=== PATIENT | female | born 1955 | race Caucasian/White ===

== ENCOUNTER 2022-07-01 16:51 | Emergency (ER) | payer BC, OTHER ==
[~2022-07-01] VITALS: Ht 170.2 cm; Wt 59.0 kg
[2022-07-01 17:26] VITALS: BP_SYST 150
--- NOTE | 2022-07-01 17:31 | NUR ---
Patient triaged and placed in waiting room. VSS and patient appears in no acute distress at this time. Accompanied by , awaiting available bed, and MD notified of need for MSE.
[2022-07-01 19:13] LABS: HEMATOCRIT 37.9 % (36-48); HEMOGLOBIN 12.4 g/dL (12.0-16.0); MEAN CORPUSCULAR HEMOGLOBIN 31 pg (27-31); MEAN CORPUSCULAR HGB CONC 33 % (32-36); MEAN CORPUSCULAR VOLUME 94 fL (79.0-98.0); PLATELET COUNT (AUTO) 217 K/uL (130-430); RED BLOOD CELL COUNT(AUTO) 4.04 MIL/uL (4.2-6.2); RED CELL DISTRIBUTION WIDTH 14.2 % (9.0-15.0)
[2022-07-01 19:16] LABS: ALBUMIN 3.8 g/dL (3.4-4.8); CREATININE 1.49 mg/dL (0.55-1.30); TOTAL BILIRUBIN 0.6 mg/dL (0.0-1.0)
[2022-07-01 19:24] LABS: BILIRUBIN,URINE NEGATIVE (NEGATIVE); BLOOD, URINE 3+ (NEGATIVE); CLARITY/URINE HAZY (CLEAR); COLOR,URINE YELLOW (YELLOW); GLUCOSE,URINE NEGATIVE (NEGATIVE); KETONES,URINE NEGATIVE (NEGATIVE); LEUKOCYTE ESTERASE ,URINE 2+ (NEGATIVE); NITRITE, URINE POSITIVE (NEGATIVE); PROTEIN URINE 2+ (NEGATIVE); UROBILINOGEN,URINE 0.2 (0.2-1.0)
[2022-07-01 19:24] LABS: PHOSPHORUS 2.7 mg/dL (2.7-4.5); THYROID STIMULATING HORMONE 0.26 uIu/mL (0.36-3.74)
[2022-07-01 19:26] LABS: BACTERIA,URINE MODERATE /HPF (None Seen); RBC,URINE 0-3 /HPF (0-3); WBC,URINE 20-50 /HPF (0-3)
[2022-07-01 19:27] LABS: MUCUS,URINE None Seen /LPF (None Seen)
[2022-07-01 19:31] LABS: WHITE BLOOD COUNT (AUTO) 44.3 K/uL (4.8-10.8)
[2022-07-01 19:51] LABS: ATYPICAL LYMPHOCYTES % 4 % (0-0); BAND % (MANUAL) 1 % (0-6); BASOPHILS % (MANUAL) 0 % (0-2); EOSINOPHILS % (MANUAL) 0 % (0-7); LYMPHOCYTES % (MANUAL) 70 % (20-46); MONOCYTES % (MANUAL) 1 % (0-11)
[2022-07-01] MEDS ORDERED: NACL 0.9% 2,000 ML IV ONE (20:15)
[2022-07-01] MEDS ORDERED: cefTRIAXone 1 GM in D5W 50 ML IV ONE (20:15)
[2022-07-01] MEDS ORDERED: CEPH-548 PO (20:39)
[2022-07-01] MEDS ORDERED: cephALEXin 500 MG CAPSULE PO ONE (20:45)
--- NOTE | 2022-07-01 20:55 | NUR ---
Patient to ER bed 4 to gown for evaluation. Side rails up. Report given to FATOU LONGO(REG).
[2022-07-01 21:10] VITALS: BP_SYST 134
--- NOTE | 2022-07-01 21:14 | NUR ---
Patient given written and verbal discharge instructions and verbalizes understanding. ER MD discussed with patient the results and treatment provided. Patient in stable condition. ID arm band removed. IV catheter removed intact and dressing applied, no active bleeding. Rx of meds given. Patient educated on pain management and to follow up with PMD. Pain Scale . Opportunity for questions provided and answered. Medication side effect fact sheet provided.
--- NOTE | 2022-07-03 17:35 | NUR ---
LAB RESULTS: BLOOD CULTURE GRAM NEGATIVE RODS PT CALLED AND LAB RESULTS EXPLAINED BY ER DR. ESPINAL. PT TO RETURN TO ER [facility]. PT VERBALIZED UNDERSTANDING.
== END 2022-07-01 21:10 | disposition home or self-care (01) ==
LOC: SED 16:51
DX: N39.0 Urinary tract infection, site not specified (principal); R32 Unspecified urinary incontinence; I10 Essential (primary) hypertension; Z85.6 Personal history of leukemia; Z79.899 Other long term (current) drug therapy
CPT/HCPCS: 36415; 80053; 81000; 83605; 83615; 83735; 84100; 84443; 85007; 85027; 87040; 87086; 99283

== ENCOUNTER 2022-07-03 18:10 | Inpatient (IN) | payer OTHER, BC ==
[~2022-07-03] VITALS: Ht 167.6 cm; Wt 59.0 kg
[~2022-07-03 18:10] MED LIST: CEPH-548 PO
[2022-07-03 18:34] VITALS: BP_SYST 137
--- NOTE | 2022-07-03 18:37 | NUR ---
Patient triaged and placed in waiting room. VSS and patient appears in no acute distress at this time. Accompanied by , awaiting available bed, and MD notified of need for MSE.
--- NOTE | 2022-07-03 18:43 | NUR ---
PT HAS RETURNED TO ER AFTER BEING INSTRUCTED TO. PT HAD POSITIVE BLOOD CULTURE RESULTS: NEGATIVE RODS. PT IS AMBULATORY, AAOX4, VSS
--- NOTE | 2022-07-03 19:45 | NUR ---
FIRST CONTACT WITH PT. ASSESSMENT COMPLETED. AWAITING ADDITIONAL EVAL AND ORDERS.
[2022-07-03 20:04] LABS: HEMOGLOBIN 12.1 g/dL (12.0-16.0); MEAN CORPUSCULAR HEMOGLOBIN 31 pg (27-31); MEAN CORPUSCULAR HGB CONC 33 % (32-36); MEAN CORPUSCULAR VOLUME 93 fL (79.0-98.0); PLATELET COUNT (AUTO) 219 K/uL (130-430); RED BLOOD CELL COUNT(AUTO) 3.97 MIL/uL (4.2-6.2); RED CELL DISTRIBUTION WIDTH 14.2 % (9.0-15.0)
[2022-07-03 20:15] LABS: WHITE BLOOD COUNT (AUTO) 43.4 K/uL (4.8-10.8)
[2022-07-03] MEDS ORDERED: cefTRIAXone 1 GM in D5W 50 ML IV ONE (20:15)
[2022-07-03] MEDS ORDERED: cefTRIAXone 1 GM VIAL ONE (20:18)
[2022-07-03 20:19] LABS: ALBUMIN 3.7 g/dL (3.4-4.8); CALCIUM 9.2 mg/dL (8.4-11.0); CREATININE 1.73 mg/dL (0.55-1.30); TOTAL BILIRUBIN 0.3 mg/dL (0.0-1.0)
[2022-07-03 20:26] LABS: BAND % (MANUAL) 4 % (0-6); BASOPHILS % (MANUAL) 0 % (0-2); EOSINOPHILS % (MANUAL) 0 % (0-7); MONOCYTES % (MANUAL) 3 % (0-11)
[2022-07-03 20:27] LABS: LYMPHOCYTES % (MANUAL) 82 % (20-46)
--- NOTE | 2022-07-03 21:01 | NUR ---
Admit bed requested Patient will be admitted to care of . Admitted to MED SURG unit. Diagnosis UTI Inpatient (Yes or No) Y Observation (Yes or No) N Orientation concerns or request close to nursing station (Yes or No) N Covid Status N/A On vent or bipap N Isolation requirements Needs a sitter N From Home (Yes or if No enter name of facility) Y Requires Dialysis (Yes or No) Med Rec Completed (Yes of No) Y
--- NOTE | 2022-07-03 21:44 | NUR ---
REPORT CALLED TO AMANDA MILLARD RN AND TRANSPORTED PT TO ROOM 118A
--- NOTE | 2022-07-03 21:45 | NUR ---
Patient will be admitted to care of DR REDD. Admitted to MED SURGE unit. Will go to room 118A. Belongings list completed. Complete and up to date summary report printed. SBAR report to be given at bedside with opportunity for questions.
[2022-07-03 22:10] LABS: BILIRUBIN,URINE NEGATIVE (NEGATIVE); BLOOD, URINE 1+ (NEGATIVE); CLARITY/URINE CLEAR (CLEAR); COLOR,URINE YELLOW (YELLOW); GLUCOSE,URINE NEGATIVE (NEGATIVE); KETONES,URINE NEGATIVE (NEGATIVE); LEUKOCYTE ESTERASE ,URINE TRACE (NEGATIVE); NITRITE, URINE NEGATIVE (NEGATIVE); PROTEIN URINE NEGATIVE (NEGATIVE); UROBILINOGEN,URINE 0.2 (0.2-1.0)
[2022-07-03 22:28] LABS: BACTERIA,URINE RARE /HPF (None Seen); MUCUS,URINE None Seen /LPF (None Seen)
[2022-07-03 22:39] VITALS: BP_SYST 142
--- NOTE | 2022-07-04 01:44 | NUR ---
Consultation Paged Reason for Consultation: UTI Was consult called: Y Person who was notified: Sima Consulting Physician: Dr. Presotn Ordering Physician: True Hall
[2022-07-04 07:54] VITALS: BP_SYST 142
[2022-07-04] MEDS ORDERED: NALOXONE HCL 0.4 MG/ML AMP (NARCAN) IVP PRN ×2 (10:00)
[2022-07-04] MEDS ORDERED: HYDROcodone/ACETAMIN 5-325 MG TAB (NORCO/ VICODIN) PO PRN (10:00)
[2022-07-04] MEDS ORDERED: ACETAMINOPHEN 325 MG TABLET PO PRN (10:00)
[2022-07-04] MEDS ORDERED: ONDANSETRON HCL 4 MG/2 ML VIAL IVP PRN (10:00)
[2022-07-04] MEDS ORDERED: LORazepam 2 MG/ML VIAL IVP PRN (10:00)
[2022-07-04] MEDS ORDERED: HYDROcodone/ACETAMIN 10-325 MG TAB PO PRN (10:00)
--- NOTE | 2022-07-04 10:09 | NUR ---
CONSULTATION PAGED REASON FOR CONSULTATION:LIZA WAS CONSULT CALLED?Y PERSON WHO WAS NOTIFIED:MANUEL CONSULTING PHYSICIAN:LEO REESE [employer]SEM[employer] SPECIALTY:NEPHROLOGY MEDICAL ASSEMBLY PHONE NUMBER:[phone] REQUESTING PHYSICIAN:MCKINLEY ESTRELLA
[2022-07-04 10:59] LABS: BASOPHILS # (AUTO) 0.1 K/uL (0.0-0.2); BASOPHILS % (AUTO) 0.1 % (0.0-2.0); HEMATOCRIT 36.6 % (36-48); HEMOGLOBIN 11.8 g/dL (12.0-16.0); LYMPHOCYTES # (AUTO) 30.9 K/uL (1.0-5.5); MEAN CORPUSCULAR HEMOGLOBIN 30 pg (27-31); MEAN CORPUSCULAR HGB CONC 32 % (32-36); MEAN CORPUSCULAR VOLUME 93 fL (79.0-98.0); MONOCYTES % (AUTO) 2.7 % (1.7-9.3); NEUTROPHILS # (AUTO) 4.3 K/uL (1.8-7.7); PLATELET COUNT (AUTO) 206 K/uL (130-430); RED BLOOD CELL COUNT(AUTO) 3.92 MIL/uL (4.2-6.2); RED CELL DISTRIBUTION WIDTH 13.6 % (9.0-15.0)
[2022-07-04 11:23] LABS: ALBUMIN 3.4 g/dL (3.4-4.8); C-REACTIVE PROTEIN QUANT 5.7 mg/dL (0-0.5); CALCIUM 9.1 mg/dL (8.4-11.0); CREATININE 1.54 mg/dL (0.55-1.30); PHOSPHORUS 3.2 mg/dL (2.7-4.5); TOTAL BILIRUBIN 0.3 mg/dL (0.0-1.0)
[2022-07-04 11:24] LABS: WHITE BLOOD COUNT (AUTO) 36.3 K/uL (4.8-10.8)
[2022-07-04 11:25] LABS: LYMPHOCYTES % (AUTO) 85.2 % (20.5-51.5)
[2022-07-04 11:27] LABS: ERYTHROCYTE SEDIMENTATION RATE 37 MM/HR (0-20)
[2022-07-04] MEDS: D5/0.45 NS 1,000 ML IV SCH ×2 (12:27→20:00)
[2022-07-04] MEDS: PIPERACILLIN/TAZO 4.5GM/DEX-IS 100 ML IV SCH ×2 (13:18→22:20)
--- NOTE | 2022-07-04 15:36 | NUR ---
New PIV started to the RFA 20G x1 attempt. Pt tolerated well. The LAC removed d/t placement and not flowing with IVF.
[2022-07-04] MEDS: ACETAMINOPHEN 325 MG TABLET PO PRN (16:26)
[2022-07-04 16:40] VITALS: BP_SYST 107
[2022-07-04 20:00] VITALS: BP_SYST 110
[2022-07-04] MEDS ORDERED: cefTRIAXone 1 GM IVPB PREMIX 50 ML IV SCH (21:00)
--- NOTE | 2022-07-05 00:40 | NUR ---
Received SBAR report Received report from DONTA Herring. Patient is resting in bed, eyes closed, lights are out. No distress. IVF infusing as ordered. Call light w/in reach
[2022-07-05] MEDS: D5/0.45 NS 1,000 ML IV SCH ×2 (01:54→13:28)
--- NOTE | 2022-07-05 01:54 | NUR ---
IVF late entry IVF empty, hung new bag, infusing well.
[2022-07-05 04:40] LABS: HEMATOCRIT 32.8 % (36-48); HEMOGLOBIN 10.6 g/dL (12.0-16.0); MEAN CORPUSCULAR HEMOGLOBIN 30 pg (27-31); MEAN CORPUSCULAR HGB CONC 32 % (32-36); MEAN CORPUSCULAR VOLUME 94 fL (79.0-98.0); PLATELET COUNT (AUTO) 199 K/uL (130-430); RED BLOOD CELL COUNT(AUTO) 3.49 MIL/uL (4.2-6.2); RED CELL DISTRIBUTION WIDTH 14.1 % (9.0-15.0)
[2022-07-05 04:55] LABS: CALCIUM 8.3 mg/dL (8.4-11.0); CREATININE 1.62 mg/dL (0.55-1.30); PHOSPHORUS 3.8 mg/dL (2.7-4.5)
[2022-07-05 05:38] LABS: WHITE BLOOD COUNT (AUTO) 34.3 K/uL (4.8-10.8)
[2022-07-05 06:09] LABS: BAND % (MANUAL) 2 % (0-6); BASOPHILS % (MANUAL) 0 % (0-2); EOSINOPHILS % (MANUAL) 0 % (0-7); LYMPHOCYTES % (MANUAL) 82 % (20-46); MONOCYTES % (MANUAL) 5 % (0-11)
[2022-07-05] MEDS: PIPERACILLIN/TAZO 4.5GM/DEX-IS 100 ML IV SCH ×3 (06:16→22:44)
[2022-07-05 06:20] VITALS: BP_SYST 123
--- NOTE | 2022-07-05 06:30 | NUR ---
Antibiotic, patient care Administered scheduled antibiotic, reviewed side effects and she verbalized understanding. Provided with new gown, bed sheets and socks. She gave self bed bath with CHG/bath wipes. provided new pitcher of water
[2022-07-05 08:02] VITALS: BP_SYST 126
[2022-07-05 11:19] VITALS: BP_SYST 117
[2022-07-05] MEDS: ACETAMINOPHEN 325 MG TABLET PO PRN (12:05)
[2022-07-05 15:30] VITALS: BP_SYST 126
[2022-07-05 19:36] LABS: BILIRUBIN,URINE NEGATIVE (NEGATIVE); CLARITY/URINE CLEAR (CLEAR); COLOR,URINE YELLOW (YELLOW); GLUCOSE,URINE NEGATIVE (NEGATIVE); KETONES,URINE NEGATIVE (NEGATIVE); LEUKOCYTE ESTERASE ,URINE NEGATIVE (NEGATIVE); NITRITE, URINE NEGATIVE (NEGATIVE); PROTEIN URINE NEGATIVE (NEGATIVE); UROBILINOGEN,URINE 0.2 (0.2-1.0)
[2022-07-05 19:40] LABS: BLOOD, URINE TRACE (NEGATIVE)
[2022-07-05 19:52] LABS: BACTERIA,URINE RARE /HPF (None Seen); RBC,URINE 0-3 /HPF (0-3); WBC,URINE 0-3 /HPF (0-3)
[2022-07-05 20:00] VITALS: BP_SYST 142
[2022-07-06] MEDS: D5/0.45 NS 1,000 ML IV SCH (01:35)
[2022-07-06 01:37] VITALS: BP_SYST 133
[2022-07-06 05:03] LABS: BASOPHILS % (AUTO) 0.1 % (0.0-2.0); EOSINOPHILS # (AUTO) 0.1 K/uL (0.0-0.4); EOSINOPHILS % (AUTO) 0.3 % (0.0-4.0); HEMATOCRIT 34.5 % (36-48); HEMOGLOBIN 11.1 g/dL (12.0-16.0); LYMPHOCYTES # (AUTO) 24.2 K/uL (1.0-5.5); LYMPHOCYTES % (AUTO) 83.5 % (20.5-51.5); MEAN CORPUSCULAR HEMOGLOBIN 30 pg (27-31); MEAN CORPUSCULAR HGB CONC 32 % (32-36); MEAN CORPUSCULAR VOLUME 94 fL (79.0-98.0); MONOCYTES # (AUTO) 0.6 K/uL (0.0-1.0); MONOCYTES % (AUTO) 2.2 % (1.7-9.3); NEUTROPHILS % (AUTO) 13.9 % (40.0-70.0); PLATELET COUNT (AUTO) 201 K/uL (130-430); RED BLOOD CELL COUNT(AUTO) 3.68 MIL/uL (4.2-6.2); RED CELL DISTRIBUTION WIDTH 13.9 % (9.0-15.0)
[2022-07-06 05:25] LABS: C-REACTIVE PROTEIN QUANT 1.8 mg/dL (0-0.5); CALCIUM 8.4 mg/dL (8.4-11.0); CREATININE 1.47 mg/dL (0.55-1.30); PHOSPHORUS 3.7 mg/dL (2.7-4.5); TOTAL BILIRUBIN 0.3 mg/dL (0.0-1.0)
[2022-07-06] MEDS: PIPERACILLIN/TAZO 4.5GM/DEX-IS 100 ML IV SCH (06:05)
[2022-07-06 06:58] LABS: ERYTHROCYTE SEDIMENTATION RATE 18 MM/HR (0-20)
--- NOTE | 2022-07-06 07:30 | NUR ---
SHIFT SUMMARY Patient stable through night. Ambulatory with steady gait. No s/s distress. Patient reported diarrhea x2 this morning. Endorsed to oncoming nurse.
[2022-07-06 09:03] VITALS: BP_SYST 140
[2022-07-06 12:16] VITALS: BP_SYST 130
[2022-07-06 12:33] VITALS: BP_SYST 138
--- NOTE | 2022-07-06 12:50 | NUR ---
D/C Patient patient to home, picked up by the via personal vehicle. Patient is alert and oriented x4, verbally responsive in no acute distress. Patient given medication reconciliation form and D/C instructions. Instructed patient about Keflex PO ATB to start taking tonight, it's BID x 7 days. Also patient is made aware of the IV antibiotic at the infusion center starting tomorrow for 10 days. Case Management talked to the patient and gave her the appointment tomorrow @ 0900 at the infusion center. Exit Care provided. Patient verbalized understanding. MD discussed with patient the results and treatment provided. Ambulatory with steady gait for discharge to home. Patient in stable condition, ID band removed. IV catheter removed, intact and dressing applied, no active bleeding. All belongings sent with patient. VSS, no c/o pain or discomfort.
--- NOTE | 2022-07-19 13:27 | NUR ---
Space Scheduler QUALITY CONTROL ANALYST made a Post Discharge Follow Up Phone Call to former pt. Ninoska who stated she had a follow up apt w/ Dr. Barrios. 07/15. Ninoska also completed 10 days of antibiotics (infusion) all everything is all cleared up. Her next apt. with is in 4 weeks. Ninoska stated she is feeling much better and did not have any questions or concerns.
== END 2022-07-06 13:00 | disposition home or self-care (01) | DRG 871 ==
LOC: SED 18:10 → SMU 22:24
PROVIDERS: ADMIT Preventive Medicine Preventive Medicine/Occupational Environmental Medicine; ATTEND Preventive Medicine Preventive Medicine/Occupational Environmental Medicine
DX: A41.9 Sepsis, unspecified organism (principal); N17.0 Acute kidney failure with tubular necrosis; C91.10 Chronic lymphocytic leukemia of B-cell type not having achieved remission; E44.0 Moderate protein-calorie malnutrition; N10 Acute pyelonephritis; Z68.21 Body mass index [BMI] 21.0-21.9, adult; B96.20 Unspecified Escherichia coli [E. coli] as the cause of diseases classified elsewhere; B96.89 Other specified bacterial agents as the cause of diseases classified elsewhere; D64.9 Anemia, unspecified; E83.52 Hypercalcemia; E87.6 Hypokalemia; I10 Essential (primary) hypertension; R73.9 Hyperglycemia, unspecified; I12.9 Hypertensive chronic kidney disease with stage 1 through stage 4 chronic kidney disease, or unspecified chronic kidney disease; N18.31 Chronic kidney disease, stage 3a
CPT/HCPCS: 36415; 76770; 80048; 80053; 81000; 83605; 83735; 84100; 84302; 85007; 85025; 85027; 85651-TC; 86140; 87040; 87086; 96365; 99285; J0696; J2543; J7060

== ENCOUNTER 2023-02-22 11:10 | Emergency (ER) | payer BC, OTHER ==
[~2023-02-22] VITALS: Ht 170.2 cm; Wt 56.7 kg
[2023-02-22 11:53] VITALS: BP_SYST 149; PULSE 110; RESP 15; TEMP 96.8; O2SAT 96
[2023-02-22 12:11] LABS: BILIRUBIN,URINE NEGATIVE (NEGATIVE); CLARITY/URINE CLEAR (CLEAR); COLOR,URINE YELLOW (YELLOW); GLUCOSE,URINE NEGATIVE (NEGATIVE); KETONES,URINE NEGATIVE (NEGATIVE); LEUKOCYTE ESTERASE ,URINE NEGATIVE (NEGATIVE); NITRITE, URINE NEGATIVE (NEGATIVE); PROTEIN URINE NEGATIVE (NEGATIVE); UROBILINOGEN,URINE 0.2 (0.2-1.0)
[2023-02-22 12:16] LABS: BLOOD, URINE TRACE (NEGATIVE)
[2023-02-22 12:33] LABS: BACTERIA,URINE None Seen /HPF (None Seen); RBC,URINE 0-3 /HPF (0-3); WBC,URINE NONE SEEN /HPF (0-3)
[2023-02-22 15:54] VITALS: BP_SYST 149; PULSE 110; RESP 15; TEMP 96.8; O2SAT 96
== END 2023-02-22 15:22 | disposition home or self-care (01) ==
LOC: SED 11:10
DX: F41.9 Anxiety disorder, unspecified (principal); R25.1 Tremor, unspecified; I10 Essential (primary) hypertension; Z79.899 Other long term (current) drug therapy
CPT/HCPCS: 81000; 81001; 81015; 99283

== ENCOUNTER 2023-02-26 03:45 | Emergency (ER) | payer BC, OTHER ==
[~2023-02-26] VITALS: Ht 170.2 cm; Wt 56.2 kg
[2023-02-26 03:50] VITALS: BP_SYST 159; PULSE 87; RESP 17; TEMP 98; O2SAT 98
[2023-02-26 04:15] LABS: BILIRUBIN,URINE NEGATIVE (NEGATIVE); CLARITY/URINE CLEAR (CLEAR); COLOR,URINE YELLOW (YELLOW); GLUCOSE,URINE NEGATIVE (NEGATIVE); KETONES,URINE NEGATIVE (NEGATIVE); LEUKOCYTE ESTERASE ,URINE NEGATIVE (NEGATIVE); NITRITE, URINE NEGATIVE (NEGATIVE); PH,URINE 6.5 (5.0-8.0); PROTEIN URINE NEGATIVE (NEGATIVE); UROBILINOGEN,URINE 0.2 (0.2-1.0)
[2023-02-26] MEDS ORDERED: LORazepam 2 MG/ML VIAL IM ONE (04:15)
[2023-02-26 04:18] LABS: BLOOD, URINE TRACE (NEGATIVE)
[2023-02-26 04:24] LABS: BACTERIA,URINE None Seen /HPF (None Seen); RBC,URINE 0-3 /HPF (0-3); WBC,URINE 0-3 /HPF (0-3)
[2023-02-26 04:44] VITALS: TEMP 98.4
[2023-02-26] MEDS ORDERED: ESCI20TA PO (04:49)
[2023-02-26 04:55] VITALS: BP_SYST 150; PULSE 78; RESP 18; O2SAT 98
[2023-02-27] MEDS ORDERED: ALPR0.25 PO (08:51)
== END 2023-02-26 04:55 | disposition home or self-care (01) ==
LOC: SED 03:45
DX: R06.4 Hyperventilation (principal); F41.1 Generalized anxiety disorder; I10 Essential (primary) hypertension; Z79.899 Other long term (current) drug therapy
CPT/HCPCS: 99283; 81001; 96372; 81000; 81015; J2060

== ENCOUNTER 2023-02-27 05:54 | Emergency (ER) | payer BC, OTHER ==
[~2023-02-27] VITALS: Ht 162.6 cm; Wt 49.9 kg
[~2023-02-27 05:54] MED LIST changes: -CEPH-548 PO; +ESCI20TA PO
[2023-02-27 05:58] VITALS: BP_SYST 153; PULSE 91; RESP 16; TEMP 98; O2SAT 99
[2023-02-27 06:54] LABS: HEMATOCRIT 40.4 % (36-48); HEMOGLOBIN 13.1 g/dL (12.0-16.0); MEAN CORPUSCULAR HEMOGLOBIN 31 pg (27-31); MEAN CORPUSCULAR HGB CONC 33 % (32-36); MEAN CORPUSCULAR VOLUME 95 fL (79.0-98.0); PLATELET COUNT (AUTO) 255 K/uL (130-430); RED BLOOD CELL COUNT(AUTO) 4.24 MIL/uL (4.2-6.2); RED CELL DISTRIBUTION WIDTH 13.8 % (9.0-15.0)
[2023-02-27 07:04] LABS: WHITE BLOOD COUNT (AUTO) 51.4 K/uL (4.8-10.8)
[2023-02-27 07:17] LABS: CALCIUM 9.5 mg/dL (8.4-11.0); CREATININE 1.3 mg/dL (0.55-1.30); POTASSIUM 3.9 mmol/L (3.5-5.1)
[2023-02-27 07:22] LABS: ALBUMIN 4.1 g/dL (3.4-4.8); BILIRUBIN,DIRECT 0.1 mg/dL (0.0-0.3); TOTAL BILIRUBIN 0.6 mg/dL (0.0-1.0); TOTAL PROTEIN, SERUM 7.2 g/dL (6.4-8.3)
[2023-02-27 07:32] LABS: ATYPICAL LYMPHOCYTES % 38 % (0-0); LYMPHOCYTES % (MANUAL) 39 % (20-46)
[2023-02-27 07:33] LABS: BASOPHILS % (MANUAL) 0 % (0-2); EOSINOPHILS % (MANUAL) 0 % (0-7); MONOCYTES % (MANUAL) 2 % (0-11); PLATELET ESTIMATE ADEQUATE (ADEQUATE); SMUDGE CELLS MOD
[2023-02-27 07:47] LABS: BILIRUBIN,URINE NEGATIVE (NEGATIVE); BLOOD, URINE NEGATIVE (NEGATIVE); CLARITY/URINE CLEAR (CLEAR); COLOR,URINE YELLOW (YELLOW); GLUCOSE,URINE NEGATIVE (NEGATIVE); KETONES,URINE NEGATIVE (NEGATIVE); LEUKOCYTE ESTERASE ,URINE NEGATIVE (NEGATIVE); NITRITE, URINE NEGATIVE (NEGATIVE); PH,URINE 6.5 (5.0-8.0); PROTEIN URINE NEGATIVE (NEGATIVE); UROBILINOGEN,URINE 0.2 (0.2-1.0)
[2023-02-27] MEDS ORDERED: ALPRAZolam 0.25 MG TABLET PO ONE (08:00)
[2023-02-27] MEDS ORDERED: ALPR0.25 PO (08:51)
[2023-02-27 09:16] VITALS: BP_SYST 157; PULSE 87; RESP 18; TEMP 98.6; O2SAT 97
== END 2023-02-27 09:16 | disposition home or self-care (01) ==
LOC: SED 05:54
DX: F41.9 Anxiety disorder, unspecified (principal); I10 Essential (primary) hypertension; Z79.899 Other long term (current) drug therapy
CPT/HCPCS: 36415; 71045; 80048; 80076; 81001; 81003; 83605; 85007; 85027; 93005; 99285

== ENCOUNTER 2023-03-04 05:01 | Emergency (ER) | payer BC, OTHER ==
[~2023-03-04] VITALS: Ht 170.2 cm; Wt 54.9 kg
[~2023-03-04 05:01] MED LIST changes: +ALPR0.25 PO
[2023-03-04 05:20] VITALS: BP_SYST 164; PULSE 87; RESP 18; TEMP 97.8; O2SAT 97
[2023-03-04 06:43] LABS: HEMATOCRIT 39.7 % (36-48); HEMOGLOBIN 13.1 g/dL (12.0-16.0); MEAN CORPUSCULAR HEMOGLOBIN 31 pg (27-31); MEAN CORPUSCULAR HGB CONC 33 % (32-36); MEAN CORPUSCULAR VOLUME 95 fL (79.0-98.0); PLATELET COUNT (AUTO) 234 K/uL (130-430); RED CELL DISTRIBUTION WIDTH 13.7 % (9.0-15.0)
[2023-03-04 06:51] LABS: ANION GAP 8 (5-15); CALCIUM 9.8 mg/dL (8.4-11.0); CARBON DIOXIDE 27 mmol/L (23-29); CHLORIDE 103 mmol/L (98-107); CREATININE 1.29 mg/dL (0.55-1.30); GFR AFRICAN AMERICAN 53 mL/min (>90); GFR NON AFRICAN-AMERICAN 44 mL/min (>90); GLUCOSE 105 mg/dL (74-106); POTASSIUM 3.7 mmol/L (3.5-5.1); SODIUM SERUM 138 mmol/L (136-145); UREA NITROGEN, BLOOD 31 mg/dL (8-21)
[2023-03-04 07:14] LABS: WHITE BLOOD COUNT (AUTO) 53.6 K/uL (4.8-10.8)
[2023-03-04 08:35] LABS: BILIRUBIN,URINE NEGATIVE (NEGATIVE); BLOOD, URINE NEGATIVE (NEGATIVE); CLARITY/URINE CLEAR (CLEAR); COLOR,URINE YELLOW (YELLOW); GLUCOSE,URINE NEGATIVE (NEGATIVE); KETONES,URINE NEGATIVE (NEGATIVE); LEUKOCYTE ESTERASE ,URINE NEGATIVE (NEGATIVE); NITRITE, URINE NEGATIVE (NEGATIVE); PH,URINE 6.5 (5.0-8.0); PROTEIN URINE NEGATIVE (NEGATIVE); UROBILINOGEN,URINE 0.2 (0.2-1.0)
[2023-03-04 09:15] VITALS: BP_SYST 168; PULSE 80; RESP 20; TEMP 98.6; O2SAT 97
[2023-03-04 09:25] LABS: ATYPICAL LYMPHOCYTES % 36 % (0-0); BAND % (MANUAL) 0 % (0-6); BASOPHILS % (MANUAL) 0 % (0-2); EOSINOPHILS % (MANUAL) 0 % (0-7); LYMPHOCYTES % (MANUAL) 45 % (20-46); MONOCYTES % (MANUAL) 2 % (0-11)
[2023-03-04 09:26] LABS: PLATELET ESTIMATE ADEQUATE (ADEQUATE); SMUDGE CELLS MANY
== END 2023-03-04 09:16 | disposition home or self-care (01) ==
LOC: SED 05:01
DX: R07.89 Other chest pain (principal); F41.9 Anxiety disorder, unspecified; I10 Essential (primary) hypertension; Z79.899 Other long term (current) drug therapy
CPT/HCPCS: 36415; 71045; 80048; 81001; 81003; 84484; 85007; 85027; 93005; 99285

== ENCOUNTER 2023-04-30 03:48 | Emergency (ER) | payer BC, OTHER ==
[~2023-04-30] VITALS: Ht 170.2 cm; Wt 53.5 kg
[2023-04-30 03:55] VITALS: BP_SYST 153; PULSE 96; RESP 23; TEMP 97.7; O2SAT 100
[2023-04-30 06:13] LABS: BILIRUBIN,URINE NEGATIVE (NEGATIVE); BLOOD, URINE NEGATIVE (NEGATIVE); CLARITY/URINE CLEAR (CLEAR); COLOR,URINE YELLOW (YELLOW); GLUCOSE,URINE NEGATIVE (NEGATIVE); KETONES,URINE NEGATIVE (NEGATIVE); LEUKOCYTE ESTERASE ,URINE NEGATIVE (NEGATIVE); NITRITE, URINE NEGATIVE (NEGATIVE); PROTEIN URINE NEGATIVE (NEGATIVE); UROBILINOGEN,URINE 0.2 (0.2-1.0)
[2023-04-30 06:45] LABS: CALCIUM 10.6 mg/dL (8.4-11.0); CREATININE 1.36 mg/dL (0.55-1.30); POTASSIUM 3.8 mmol/L (3.5-5.1)
[2023-04-30 06:50] LABS: ALBUMIN 4.5 g/dL (3.4-4.8); TOTAL BILIRUBIN 0.8 mg/dL (0.0-1.0); TOTAL PROTEIN, SERUM 7.7 g/dL (6.4-8.3)
[2023-04-30 07:23] LABS: HEMATOCRIT 42.4 % (36-48); HEMOGLOBIN 13.8 g/dL (12.0-16.0); MEAN CORPUSCULAR HEMOGLOBIN 31 pg (27-31); MEAN CORPUSCULAR HGB CONC 32 % (32-36); MEAN CORPUSCULAR VOLUME 95 fL (79.0-98.0); PLATELET COUNT (AUTO) 233 K/uL (130-430); RED BLOOD CELL COUNT(AUTO) 4.47 MIL/uL (4.2-6.2)
[2023-04-30 07:26] LABS: WHITE BLOOD COUNT (AUTO) 57.1 K/uL (4.8-10.8)
[2023-04-30] MEDS ORDERED: DOCU-144 PO (07:37)
[2023-04-30] MEDS ORDERED: PSYL0.4C2 PO (07:37)
[2023-04-30] MEDS ORDERED: LACT10SO6 PO (07:37)
[2023-04-30] MEDS: LACTULOSE 20 GM/30 ML UDC PO ONE (07:41)
[2023-04-30 08:00] VITALS: BP_SYST 159; PULSE 85; RESP 18; TEMP 98.2; O2SAT 98
[2023-04-30 10:03] LABS: ATYPICAL LYMPHOCYTES % 42 % (0-0); BAND % (MANUAL) 0 % (0-6); BASOPHILS % (MANUAL) 0 % (0-2); EOSINOPHILS % (MANUAL) 0 % (0-7); LYMPHOCYTES % (MANUAL) 41 % (20-46); MONOCYTES % (MANUAL) 2 % (0-11); SMUDGE CELLS MANY
[2023-04-30 10:04] LABS: PLATELET ESTIMATE ADEQUATE (ADEQUATE)
== END 2023-04-30 04:00 | disposition home or self-care (01) ==
LOC: SED 03:48
DX: N17.9 Acute kidney failure, unspecified (principal); K59.00 Constipation, unspecified; C94.81 Other specified leukemias, in remission; I10 Essential (primary) hypertension
CPT/HCPCS: 36415; 80053; 81001; 81003; 85007; 85027; 99284

== ENCOUNTER 2023-05-25 07:14 | Emergency (ER) | payer BC, OTHER ==
[~2023-05-25] VITALS: Ht 170.2 cm; Wt 53.1 kg
[~2023-05-25 07:14] MED LIST changes: +DOCU-144 PO; +LACT10SO6 PO; +PSYL0.4C2 PO
[2023-05-25 07:37] VITALS: BP_SYST 191; PULSE 86; RESP 20; TEMP 98.3; O2SAT 98
[2023-05-25 07:51] LABS: BILIRUBIN,URINE NEGATIVE (NEGATIVE); CLARITY/URINE CLEAR (CLEAR); COLOR,URINE YELLOW (YELLOW); GLUCOSE,URINE NEGATIVE (NEGATIVE); KETONES,URINE NEGATIVE (NEGATIVE); LEUKOCYTE ESTERASE ,URINE NEGATIVE (NEGATIVE); NITRITE, URINE NEGATIVE (NEGATIVE); PH,URINE 7.5 (5.0-8.0); PROTEIN URINE NEGATIVE (NEGATIVE); UROBILINOGEN,URINE 0.2 (0.2-1.0)
[2023-05-25 08:15] LABS: BLOOD, URINE TRACE (NEGATIVE)
[2023-05-25 08:26] LABS: BACTERIA,URINE None Seen /HPF (None Seen); RBC,URINE 0-3 /HPF (0-3); WBC,URINE 0-3 /HPF (0-3)
[2023-05-25] MEDS: NACL 0.9% 1,000 ML IV ONE (08:33)
[2023-05-25 08:36] LABS: HEMATOCRIT 40.8 % (36-48); HEMOGLOBIN 13.3 g/dL (12.0-16.0); MEAN CORPUSCULAR HEMOGLOBIN 31 pg (27-31); MEAN CORPUSCULAR HGB CONC 33 % (32-36); MEAN CORPUSCULAR VOLUME 96 fL (79.0-98.0); PLATELET COUNT (AUTO) 232 K/uL (130-430); RED BLOOD CELL COUNT(AUTO) 4.27 MIL/uL (4.2-6.2); RED CELL DISTRIBUTION WIDTH 14.4 % (9.0-15.0)
[2023-05-25 08:48] LABS: WHITE BLOOD COUNT (AUTO) 52.2 K/uL (4.8-10.8)
[2023-05-25 08:59] LABS: CALCIUM 9.4 mg/dL (8.4-11.0); CREATININE 1.19 mg/dL (0.55-1.30); POTASSIUM 4.6 mmol/L (3.5-5.1)
[2023-05-25 09:04] LABS: TOTAL BILIRUBIN 0.6 mg/dL (0.0-1.0); TOTAL PROTEIN, SERUM 7.3 g/dL (6.4-8.3)
[2023-05-25 09:59] VITALS: BP_SYST 156; PULSE 86; RESP 18; TEMP 97.6; O2SAT 99
[2023-05-25 12:49] LABS: ATYPICAL LYMPHOCYTES % 22 % (0-0); LYMPHOCYTES % (MANUAL) 44 % (20-46)
[2023-05-25 12:50] LABS: BASOPHILS % (MANUAL) 0 % (0-2); EOSINOPHILS % (MANUAL) 0 % (0-7); MONOCYTES % (MANUAL) 13 % (0-11); PLATELET ESTIMATE ADEQUATE (ADEQUATE); SMUDGE CELLS MOD
== END 2023-05-25 09:55 | disposition home or self-care (01) ==
LOC: SED 07:14
DX: M79.661 Pain in right lower leg (principal); M79.662 Pain in left lower leg; F41.9 Anxiety disorder, unspecified; I10 Essential (primary) hypertension; Z79.899 Other long term (current) drug therapy
CPT/HCPCS: 99283; 96360; 85027; 80053; 81001; 85007; 87040; 36415; 83605; 81000; 81015; J7030

== ENCOUNTER 2023-07-04 06:43 | Emergency (ER) | payer BC, OTHER ==
[~2023-07-04] VITALS: Ht 170.2 cm; Wt 52.6 kg
[2023-07-04 06:51] VITALS: BP_SYST 142; PULSE 87; RESP 19; TEMP 97.4; O2SAT 100
[2023-07-04] MEDS: MAG HYDROX/AL HYDROX/SIMETH 30 ML, DICYCLOMINE HCL 20 MG, LIDOCAINE VISCOUS 2% 15ML (PO... PO ONE (07:36)
[2023-07-04] MEDS ORDERED: PRO40 PO (07:53)
[2023-07-04] MEDS ORDERED: VIS25 PO (07:53)
[2023-07-04 08:06] VITALS: BP_SYST 161; PULSE 88; RESP 18; TEMP 97.1; O2SAT 98
== END 2023-07-04 08:03 | disposition home or self-care (01) ==
LOC: SED 06:43
DX: K22.4 Dyskinesia of esophagus (principal); F41.9 Anxiety disorder, unspecified; I10 Essential (primary) hypertension; Z79.899 Other long term (current) drug therapy
CPT/HCPCS: 99283; J2001